=== PATIENT | male | born 1990 | race Caucasian/White ===

== ENCOUNTER 2017-08-17 17:37 | Emergency (ER) | payer BC, OTHER ==
[2017-08-17 18:03] VITALS: BP 135/94; PULSE 71; TEMP 97.3; BMI 27.4
--- NOTE | 2017-08-17 18:05 | PDOC ---
Rapid Medical Evaluation Time Seen by Provider: 08/17/17 17:58 Medical Evaluation: Allergies Allergy/AdvReac Type Severity Reaction Status Date / Time No Known Allergies Allergy Verified 08/17/17 17:58 03 17:58 I have performed a brief in-person evaluation of the patient. The patient presents with chief complaint of: back pain since Thursday, states got worse yesterday. Seen at Urgent Care given muscle relaxant but states pain still present. Also reports pain worsening with breathing, coughing and movement. Pertinent physical exam findings are: Nad lungs clear bilaterally heart [id number] no mid spinal or paraspinal tenderness, no tenderness over ribs I have ordered the following: taking muscle relaxants The patient will proceed to the ED for further evaluation.
--- NOTE | 2017-08-17 18:14 | PDOC ---
History of Present Illness - General Chief Complaint: Back Pain Stated Complaint: LEFT Shoulder PAIN Time Seen by Provider: 08/17/17 17:58 History Source: Patient Exam Limitations: No Limitations - History of Present Illness Initial Comments: 08/17/17 18:11 Best Contact: Pmhx:n/a Pshx:n/a Allergies:NKDA 26-year-old male presents to the emergency department complaining of pain to the left heel distal shoulder blade 3 days. Patient states when he awoke, he felt 7/10 dull nonradiating intermittent ache which increases when coughing, taking a deep inspiration and movement. Pain is alleviated at rest. Patient was seen at the urgent care center 2 days ago and was given a muscle relaxer. Patient states the muscle relaxer only alleviates the pain minimally. Patient denies any trauma, injury. Patient denies headache, dizziness, lightheadedness, facial pains, neck pains, chest pain, shortness of breath, midline back pains, flank pains, abdominal discomfort, bladder or bowel dysfunction, extremity numbness or tingling sensation. Past History - Past Medical History Allergies/Adverse Reactions: Allergies Allergy/AdvReac Type Severity Reaction Status Date / Time No Known Allergies Allergy Verified 08/17/17 17:58 Home Medications: Ambulatory Orders NK [No Known Home Medication] 08/17/17 COPD: No Other medical history: DENIES - Suicide/Smoking/Psychosocial Hx Smoking History: Never smoked Review of Systems - Review of Systems Able to Perform ROS?: Yes Comments:: 08/17/17 18:13 CONSTITUTIONAL: Absent: fever, chills, diaphoresis, generalized weakness, malaise, loss of appetite HEENT: Absent: rhinorrhea, nasal congestion, throat pain, throat swelling, difficulty swallowing, mouth swelling, ear pain, eye pain, visual Changes CARDIOVASCULAR: Absent: chest pain, loss of consciousness, palpitations, irregular heart rate, peripheral edema RESPIRATORY: Absent: cough, shortness of breath, dyspnea with exertion, orthopnea, wheezing, stridor, hemoptysis GASTROINTESTINAL: Absent: abdominal pain, abdominal distension, nausea, vomiting, diarrhea, constipation, melena, hematochezia GENITOURINARY: Absent: dysuria, frequency, urgency, hesitancy, hematuria, flank pain, genital pain MUSCULOSKELETAL: +Left distal medial scapular [id number] Absent: myalgia, arthralgia, joint swelling SKIN: Absent: rash, itching, pallor HEMATOLOGIC/IMMUNOLOGIC: Absent: easy bleeding, easy bruising, lymphadenopathy, frequent infections ENDOCRINE: Absent: unexplained weight gain, unexplained weight loss, heat intolerance, cold intolerance NEUROLOGIC: Absent: headache, focal weakness or paresthesias, dizziness, unsteady gait, seizure, mental status changes, bladder or bowel incontinence PSYCHIATRIC: Absent: anxiety, depression, suicidal or homicidal ideation, hallucinations. Is the patient limited Bahamian proficient: No *Physical Exam - Vital Signs Last Vital Signs Temp Pulse Resp BP Pulse Ox 97.3 F L 71 17 135/94 97 08/17/17 17:58 08/17/17 17:58 08/17/17 17:58 08/17/17 17:58 08/17/17 17:58 - Physical Exam Comments: 08/17/17 18:14 GENERAL: Well developed, well nourished. Awake and alert. No acute distress. HEENT: Normocephalic, atraumatic. PERRLA, EOMI. No conjunctival pallor. Sclera are non- icteric. Moist mucous membranes. Oropharynx is clear. NECK: Supple. Full ROM. No JVD. Carotid pulses 2+ and symmetric, without bruits. No thyromegaly. No lymphadenopathy. CARDIOVASCULAR: Regular rate and rhythm. No murmurs, rubs, or gallops. Distal pulses are 2+ and symmetric. PULMONARY: No evidence of respiratory distress. Lungs clear to auscultation bilaterally. No wheezing, rales or rhonchi. ABDOMINAL: Soft. Non-tender. Non-distended. No rebound or guarding. No organomegaly. Normoactive bowel sounds. MUSCULOSKELETAL Normal range of motion at all joints. No bony deformities or tenderness. No CVA tenderness. EXTREMITIES: No cyanosis. No clubbing. No edema. No calf tenderness. SKIN: Warm and dry. Normal capillary refill. No rashes. No jaundice. NEUROLOGICAL: Alert, awake, appropriate. Cranial nerves 2-12 intact. No deficits to light touch and temperature in face, upper extremities and lower extremities. No motor deficits in the in face, upper extremities and lower extremities. Normoreflexic in the upper and lower extremities. Normal speech. Toes are down- going bilaterally. Gait is normal without ataxia. PSYCHIATRIC: Cooperative. Good eye contact. Appropriate mood and affect. ED Treatment Course - RADIOLOGY Radiology Studies Ordered: Category Date Time Status CHEST PA & LAT [RAD] Stat Radiology 08/17/17 18:10 Ordered Radiograph Interpretation: 08/17/17 18:14 CXR: 2v NAD *DC/Admit/Observation/Transfer Diagnosis at time of Disposition: Pain of left scapula - Discharge Dispostion Disposition: HOME Condition at time of disposition: Stable Admit: No - Referrals Referrals: Ranjana Brooks MD [Primary Care Provider] - Srinivas Francis MD [Staff Physician] - - Patient Instructions Printed Discharge Instructions: DI for Muscle Strain Additional Instructions: Ice; 20 mins on alternating with 20 mins off for 48 hours while awake. Rest Elevate Follow up with your orthopedic surgeon or the one listed on the discharge form. Return to the ER for severe/persistent/worsening symptoms, extremity numbness/ tingling sensation. - Post Discharge Activity
[2017-08-17] MEDS ORDERED: KETOROLAC TROMETHAMINE 60 MG/2 ML VIAL IM ONE (18:33)
[2017-08-17] MEDS ORDERED: KETOROLAC TROMETHAMINE 60 MG/2 ML VIAL ONE (18:34)
== END 2017-08-17 18:54 | disposition home or self-care (01) ==
LOC: JERFT 17:37
DX: M89.8X1 Other specified disorders of bone, shoulder (principal)
CPT/HCPCS: 71046-TC-FY; 99281-25